=== PATIENT | female | born 1970 | race African-American/Black ===

== ENCOUNTER 2020-05-23 00:19 | Emergency (ER) | payer MEDICARE, MEDICAID, SELFPAY ==
[2020-05-23] VITALS (12 sets, daily range): BP systolic 124–152; BP diastolic 88–100; PULSE 65–104; RESP 14–20; TEMP 36.2–36.7; O2SAT 97–100
--- NOTE | ~2020-05-23 | CT_ITS ---
EXAMINATION: CT brain wo con INDICATION: Headache COMPARISON: None TECHNIQUE: Standard unenhanced head CT. The dose-length product (DLP) was 605.33 mGy-cm. The mA was a djusted according to patient size. Iterative reconstruction technique was employed. FINDINGS: There is no intracranial hemorrhage, acute infarction, or abnormal mass lesion. The ventric les are normal. There is no abnormal mass effect or midline shift. The childs-white matter differentiat ion is normal. The basal cisterns are patent. Punctate calcifications are noted in the bilateral basa l ganglia. The orbits are normal. The paranasal sinuses, mastoids and calvarium are normal. IMPRESSION: 1. No acute intracranial abnormality. Reviewed, dictated and finalized at location A.
--- NOTE | ~2020-05-23 | XR_ITS ---
EXAMINATION: XR shoulder LT min 2V INDICATION: Left shoulder pain TECHNIQUE: Four views of the left shoulder are submitted. COMPARISON: None FINDINGS: Normal alignment. No fracture. There is mild osteoarthritis at the acromioclavicular joint. The glenohumeral joint is unremarkable. Soft tissues are unremarkable. IMPRESSION: 1. No acute osseous abnormality. Reviewed, dictated and finalized at location A.
--- NOTE | 2020-05-23 01:40 | PC.NURSE ---
Patient refused lab draw, registration in room. ERP stated he will speak with patient.
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
--- NOTE | 2020-05-23 02:14 | PC.NURSE ---
Patient ambulated to the bathroom and attempted to provide a urine specimen, unsuccessful. Will attempt again shortly.
--- NOTE | 2020-05-23 02:16 | PC.NURSE ---
Patient being taken to radiology.
[2020-05-23 02:24] LABS: Basophils Percent Auto 0.3 % (0.2-1.2); Eosinophils Percent Auto 0.1 % (0-4.4); Hematocrit 44.2 % (37.0-47.0); Hemoglobin 14.8 g/dL (12.0-15.0); Immature Granulocyte Absolute 0.05 K/mm3 (0.00-0.031); Immature Granulocyte Percent A 0.4 % (0-0.5); Lymphocytes Absolute Auto 1.11 K/mm3 (0.9-3.2); Lymphocytes Percent Auto 9.9 % (18.3-44.2); Mean Corpuscular HGB Conc 33.5 g/dl (32-36); Mean Corpuscular Hemoglobin 31.7 pg (26-34); Mean Corpuscular Volume 94.6 fl (80-100); Mean Platelet Volume 9.2 fl (7.4-10.4); Monocytes Absolute Auto 0.8 K/mm3 (0.1-0.6); Monocytes Percent Auto 7.5 % (2.6-8.5); Neutrophils Absolute Auto 9.2 K/mm3 (1.3-6.7); Neutrophils Percent Auto 81.8 % (45.5-73.1); Platelet Count Result 314 k/mm3 (150-375); Red Blood Count 4.67 M/mm3 (4.2-5.4); Red Cell Distribution Width 13.6 % (11.5-14.5); White Blood Count 11.3 K/mm3 (4.5-10.0)
[2020-05-23 02:30] LABS: Alanine Aminotransferase 29 U/L (4-35); Albumin Level 4.8 g/dL (3.5-5.1); Alkaline Phosphatase 90 U/L (38-126); Anion Gap 5 mmol/L (8-16); Aspartate Amino Transferase 48 U/L (14-36); Bilirubin,Total 0.7 mg/dL (0.2-1.3); Blood Urea Nitrogen 4 mg/dL (7-17); Calcium 10.2 mg/dL (8.4-10.2); Carbon Dioxide 28 mmol/L (22-30); Chloride 109 mmol/L (98-107); Estimated Glomerular Filt Rate > 60; Glucose 104 mg/dL (65-105); Potassium 3.4 mmol/L (3.4-5.0); Sodium 142 mmol/L (137-145)
[2020-05-23 02:32] LABS: Magnesium 2.3 mg/dL (1.6-2.3)
[2020-05-23 02:35] LABS: Ethanol < 10 mg/dL (<10)
[2020-05-23 02:42] LABS: Phenytoin Dilantin < 3 ug/mL (10-20)
[2020-05-23 03:15] LABS: Add Urine Microscopic? YES; Amorphous Sediment Urine Few; Appearance Urine Turbid (Clear); Bacteria Urine 4+ /hpf; Bilirubin Urine 1+ (Negative); Blood Urine 1+ (Negative); Color Urine Yellow (Yellow); Glucose Urine UA Negative (Negative); Ketones Urine Trace mg/dL (Negative); Leukocyte Esterase Ur Negative LEU/UL (Negative); Mucus Urine Heavy /lpf; Nitrate Urine Negative (Negative); Protein Urine 2+ mg/dL (Negative); Specific Grav Ur 1.027 (1.001-1.035); Squamous Epithelial Cell Urine Many /hpf (Few)
--- NOTE | 2020-05-23 03:40 | PC.NURSE ---
Lab called, spoke to Desi to have urine WBC released for results.
[2020-05-23 03:55] LABS: Amphetamine Screen Urine Negative (Negative); Barbiturate Screen Urine Negative (Negative); Benzodiazepines Screen Urine Negative (Negative); Cannabinoid Screen Urine Positive (Negative); Cocaine Screen Urine Negative (Negative); Methadone Screen Urine Negative (Negative); Opiate Screen Urine Negative (Negative); Phencyclidine Screen Urine Negative (Negative)
--- NOTE | 2020-05-23 03:58 | PC.NURSE ---
[id number] This nurse calls patient's brigido Mojica at [phone] and informs him that the patient is being transferred to [facility] in [facility].
--- NOTE | 2020-05-23 04:41 | PC.NURSE ---
This nurse calls patient's brigido Baker to inform him of patient's transfer and the address and phone number as well as the place where the service dog was taken by Tara SANCHEZ.
--- NOTE | 2020-05-23 04:53 | PC.NURSE ---
0414 This nurse informs patient that she is being transferred to another hospital for further evaluation. This nurse informs patient that she needs an IV for transfer, then patient states I'm fine! I want to speak with the doctor cause I don't want to go somewhere else! I don't need to go anywhere else, just home. Where is he, let me talk to him! This nurse informs ERP, and physician come to room to speak with patient. Patient still disoriented, unable to recall events and is unsure of events this past evening. Patient informed she is being transferred to another facility for further evaluation. Patient stating I won't go there! Patient then agrees to be transferred after speaking with the physician.
[2020-05-24 11:39] LABS: SARS-CoV-2 RNA PCR Negative
== END 2020-05-23 04:53 | disposition short-term general hospital (02) ==
PROVIDERS: Emergency Provider Emergency Medicine
DX: S06.0X0A Concussion without loss of consciousness, initial encounter (principal); R41.82 Altered mental status, unspecified; Z20.828 Contact with and (suspected) exposure to other viral communicable diseases; G40.909 Epilepsy, unspecified, not intractable, without status epilepticus
CPT/HCPCS: 36415; 70450; 73030; 80053; 80185; 80307; 81001; 83735; 84443; 85025; 87635; 99285; C9803; J2060; U0003